=== PATIENT | male | born 1945 ===

== ENCOUNTER 2021-09-14 08:52 | Day surgery (SDC) | payer OTHER, MEDICARE ==
--- NOTE | 2021-09-14 09:45 | NUR ---
Ambulatory in Day Surgery History, Chart, Medications and Allergies reviewed before start of procedure. Lungs clear T/O to Auscultation. Patient confirms NPO status and agrees with scheduled surgery. Pre-Op teaching done. Pt verbalizes understanding. Patient States Post-Procedure ride home has been arranged
--- NOTE | 2021-09-14 09:46 | NUR ---
PT IS READY FOR PROCEDURE. WAITING FOR PREVIOUS PROCEDURE TO FINISH. PT LYING COMFORTABLY IN GURNY STATES NO FURTHER NEEDS AT THIS TIME.
--- NOTE | 2021-09-14 10:53 | NUR ---
Patient up to Ambulate independently. Gait steady. Discharge instructions reviewed with patient. Patient verbalizes understanding. Copy given to patient to take home.
== END 2021-09-14 22:46 | disposition home or self-care (01) ==
LOC: ORSCMMR 08:52 → MHTC 08:52 → ORSCMMR 08:53
DX: R00.2 Palpitations (principal); R06.02 Shortness of breath; I10 Essential (primary) hypertension; E78.5 Hyperlipidemia, unspecified; Z79.899 Other long term (current) drug therapy
CPT/HCPCS: 75574; Q9967